=== PATIENT | male | born 1995 | race African-American/Black ===

== ENCOUNTER 2018-06-05 22:22 | Emergency (ER) | payer OTHER ==
[2018-06-06] MEDS ORDERED: Lidocaine 1% MPF wEPI 200,000* 30 ML SDV INJ ONE (00:14)
[2018-06-06] MEDS ORDERED: Lidocaine 2% EPI 1:200000 MPF*10-20 ML VIAL ONE (00:16)
--- NOTE | 2018-06-06 01:38 | ED ---
Laceration/Wound HPI - HPI Summary HPI Summary: 22-year-old male presents with face laceration today. He sustained at [place] a [place]. He was hit by some object in the yard. He denies any foreign body in the wound. Area continues to bleed. No other injury. No medical conditions. Immunizations are up-to-date. - History of Current Complaint Stated Complaint: RT CHEEK LAC Time Seen by Provider: 06/06/18 00:14 Pain Intensity: 5 - Allergy/Home Medications Allergies/Adverse Reactions: Allergies Allergy/AdvReac Type Severity Reaction Status Date / Time No Known Allergies Allergy Verified 06/05/18 22:29 PMH/Surg Hx/FS Hx/Imm Hx Endocrine/Hematology History: Denies: Hx Anticoagulant Therapy Cardiovascular History: Denies: Hx Myocardial Infarction Infectious Disease History: No Infectious Disease History: Denies: Traveled Outside the [place] in Last 30 Days - Family History Known Family History: Negative: Diabetes - Social History Alcohol Use: None Substance Use Type: Reports: None Smoking Status (MU): Current Every Day Smoker Review of Systems Negative: Fever Negative: Chest Pain Negative: Shortness Of Breath Positive: Other - facial laceration All Other Systems Reviewed And Are Negative: Yes Physical Exam Triage Information Reviewed: Yes Vital Signs On Initial Exam: Initial Vitals Temp Pulse Resp BP Pulse Ox 98.7 F 65 16 149/97 99 06/05/18 22:28 06/05/18 22:28 06/05/18 22:28 06/05/18 22:28 06/05/18 22:28 Vital Signs Reviewed: Yes Appearance: Positive: Well-Appearing Skin: Positive: Warm, Dry, Other - 8 cm by 2cm laceration to right side of face Head/Face: Positive: Normal Head/Face Inspection Eyes: Positive: Normal, Conjunctiva Clear ENT: Positive: Pharynx normal Respiratory/Lung Sounds: Positive: Clear to Auscultation, Breath Sounds Present Cardiovascular: Positive: Normal, RRR Musculoskeletal: Positive: Normal Neurological: Positive: Normal Psychiatric: Positive: Normal Procedures - Laceration/Wound Repair 1 Location: face Description: Linear Anesthesia: Local, 1.0%, Epi Length, Depth and Shape: 8cm by 3cm Irrigated w/ Saline (ccs): 500 Laceration/Wound Explored: no foreign body removed Closure: Multilayer Suture Type: Prolene, Chromic Number of Sutures: 22 Layer Closure?: Yes - 3 deep and 19 superficial Diagnostics - Vital Signs Vital Signs Temp Pulse Resp BP Pulse Ox 06/05/18 22:28 98.7 F 65 16 149/97 99 - Laboratory Lab Statement: Any lab studies that have been ordered have been reviewed, and results considered in the medical decision making process. Laceration Repair Course/Dx - Course Course Of Treatment: 22-year-old male presents with face laceration today. He sustained at the [place] where he is a resident. He was hit by some object in the yard. He denies any foreign body in the wound. Area continues to bleed. No other injury. No medical conditions. Immunizations are up-to-date. on exam has 8cm by 3cm laceration to right side of face placed 22 sutures with 3 deep. told to remove sutures in 5 days. patient understand and agrees with plan. - Differential Dx Differental Diagnoses: Abrasion, Avulsion, Laceration - Clinical Impression Provider Diagnoses: Laceration of face Discharge - Sign-Out/Discharge Documenting (check all that apply): Patient Departure - Discharge Plan Condition: Good Disposition: HOME Patient Education Materials: Care For Your Stitches (ED) Referrals: Luanne AL,Quang Amaya [Primary Care Provider] - Additional Instructions: Keep area clean and dry for 24 hours Take Tylenol or ibuprofen for pain every 6 hours suture removal in 5 days Return to ED if develop signs of infection such as fever, spreading redness, or pus formation - Billing Disposition and Condition Condition: GOOD Disposition: Home
[2018-06-06 01:50] VITALS: BP 130/78
== END 2018-06-06 01:49 | disposition home or self-care (01) ==
LOC: ED 22:22
DX: S01.81XA Laceration without foreign body of other part of head, initial encounter (principal); W22.8XXA Striking against or struck by other objects, initial encounter; Y92.9 Unspecified place or not applicable; F17.210 Nicotine dependence, cigarettes, uncomplicated
CPT/HCPCS: 12004; 99282; J2001